=== PATIENT | female | born 1985 | race Caucasian/White ===

== ENCOUNTER 2023-09-29 04:11 | Emergency (ER) | payer OTHER ==
[2023-09-29 04:22] VITALS: BMI 33.5
[2023-09-29] MEDS ORDERED: ACETAMINOPHEN 1000 MG/100 ML BAG IVPB ONE ×2 (04:46→05:05)
[2023-09-29] MEDS ORDERED: MAG HYDROX/AL HYDROX/SIMETH 30 ML UNIT-DOSE CUP PO ONE (04:46)
[2023-09-29] MEDS ORDERED: FAMOTIDINE 20 MG/50 ML IVPB 20 MG/50 ML MG IVPB ONE ×2 (04:46→05:06)
[2023-09-29] MEDS ORDERED: MAG HYDROX/AL HYDROX/SIMETH 30 ML UNIT-DOSE CUP ONE (04:52)
[2023-09-29] MEDS ORDERED: morphine SULFATE 4 MG/ML VIAL IVPUSH ONE (04:57)
[2023-09-29] MEDS ORDERED: ONDANSETRON 4 MG/2 ML VIAL IVPB ONE (04:59)
[2023-09-29] MEDS ORDERED: ACETAMINOPHEN INJECTION 100 ML IVPB ONE (05:05)
[2023-09-29] MEDS ORDERED: SODIUM CHLORIDE 0.9% 500 ML INFUS.BAG IV ONE (05:05)
[2023-09-29] MEDS ORDERED: ONDANSETRON 4 MG/2 ML VIAL ONE (05:06)
[2023-09-29 05:15] LABS: BASO % 0.8 % (0-2.0); EOS % 3.3 % (0-4.5); HEMATOCRIT 42.6 % (32.4-45.2); MCH 27.7 pg (25.7-33.7); MCHC 32.8 g/dl (32.0-36.0); MEAN CELL VOLUME 84.4 fl (80-96); MEAN PLT VOLUME 8.7 fl (7.5-11.1); MONO % 9.2 % (3.8-10.2); NEUT % 63.7 % (42.8-82.8); PLATELET COUNT 360 10^3/uL (134-434); RBC 5.05 M/mm3 (3.60-5.2); WHITE BLOOD COUNT 14.9 K/mm3 (4.0-10.0)
[2023-09-29 05:32] LABS: POTASSIUM 3.5 mmol/L (3.5-5.1)
[2023-09-29 05:35] LABS: CALCIUM 8.7 mg/dL (8.5-10.1)
[2023-09-29 05:36] LABS: ALBUMIN 3.4 g/dl (3.4-5.0); BLOOD UREA NITROGEN 9.1 mg/dL (7-18)
[2023-09-29 05:37] LABS: EPI CELLS >36 /uL (0-25.1); HYALINE CASTS 1 /uL (0-3.1); PH,URINE 6.5 (5.0-8.0); URINE APPEARANCE CLEAR; URINE BACTERIA 857 /uL (0-1359); URINE BILIRUBIN NEGATIVE (NEGATIVE); URINE COLOR YELLOW; URINE GLUCOSE (UA) NEGATIVE (NEGATIVE); URINE KETONE NEGATIVE (NEGATIVE); URINE LEUK ESTERASE TRACE (NEGATIVE); URINE NITRITE NEGATIVE (NEGATIVE); URINE PROTEIN TRACE (NEGATIVE); URINE RBC 206 /uL (0-23.9); URINE WBC 100 /uL (0-25.8)
[2023-09-29 05:38] LABS: CREATININE 0.7 mg/dL (0.55-1.3)
[2023-09-29 05:39] LABS: BILIRUBIN,TOTAL 0.3 mg/dL (0.2-1); TOT PROT 7.5 g/dl (6.4-8.2)
[2023-09-29 05:42] LABS: HCG,QUALITATIVE URINE Negative
[2023-09-29] MEDS ORDERED: CEFTRIAXONE 1,000 MG in DEXTROSE 5%-WATER - 50 ML IVPB ONE (07:02)
[2023-09-29] MEDS ORDERED: CEFTRIAXONE 1 GM/50 ML BAG ONE (08:07)
[2023-09-29 11:11] VITALS: BP 128/76; PULSE 64; RESP 20; TEMP 98.2
== END 2023-09-29 13:17 | disposition home or self-care (01) ==
LOC: JER 04:11
PROC: 3E03329 Introduction of Other Anti-infective into Peripheral Vein, Percutaneous Approach (ICD-10-PCS; principal; 2023-09-29)
PROC: 3E033GC Introduction of Other Therapeutic Substance into Peripheral Vein, Percutaneous Approach (ICD-10-PCS; 2023-09-29)
PROC: 3E033NZ Introduction of Analgesics, Hypnotics, Sedatives into Peripheral Vein, Percutaneous Approach (ICD-10-PCS; 2023-09-29)
PROC: 3E033GC Introduction of Other Therapeutic Substance into Peripheral Vein, Percutaneous Approach (ICD-10-PCS; 2023-09-29)
PROC: 3E033GC Introduction of Other Therapeutic Substance into Peripheral Vein, Percutaneous Approach (ICD-10-PCS; 2023-09-29)
DX: R10.11 Right upper quadrant pain (principal); K65.9 Peritonitis, unspecified; K55.069 Acute infarction of intestine, part and extent unspecified; R16.0 Hepatomegaly, not elsewhere classified; U07.1 COVID-19
CPT/HCPCS: 0241U-QW; 36415; 74177-TC; 76705-TC; 76830-TC; 80053; 81003; 83605; 83690; 84703; 85025; 87086; 93005; 93010; 99285-25; Q9967